=== PATIENT | female | born 1945 ===

== ENCOUNTER 2023-08-25 06:51 | Day surgery (SDC) | payer OTHER ==
[2023-08-25] MEDS ORDERED: fentaNYL CITRATE 50 MCG/ML AMPUL IV PUSH ONE (15:15)
[2023-08-25] MEDS ORDERED: MIDAZOLAM HCL 2 MG/2 ML VIAL IV ONE (15:15)
[2023-08-25] MEDS ORDERED: DIPHENHYDRAMINE HCL 50 MG/ML VIAL 1ML IV ONE (15:15)
== END 2023-08-25 11:25 | disposition home or self-care (01) ==
LOC: AMB-ENDOS 06:51
PROVIDERS: ATTEND Surgery
DX: D12.6 Benign neoplasm of colon, unspecified (principal); Z53.09 Procedure and treatment not carried out because of other contraindication; R00.9 Unspecified abnormalities of heart beat